=== PATIENT | male | born 1985 | race Two or more races ===

== ENCOUNTER 2019-07-06 15:30 | Emergency (ER) | payer OTHER ==
[~2019-07-06] VITALS: Ht 180.3 cm; Wt 90.0 kg
[2019-07-06] MEDS ORDERED: NAPR500T8 PO (16:00)
[2019-07-06] MEDS ORDERED: CEPH500T PO (16:00)
--- NOTE | 2019-07-06 16:00 | PHYS DOC ---
Past History Past Medical History: No Pertinent History Past Surgical History: Tonsillectomy, Other Additional Past Surgical Histo: adnoidectomy; lymph node removed from neck Alcohol Use: Occasionally General Adult EDM: Chief Complaint: ABSCESS HPI: HPI: Patient is a 34-year-old otherwise healthy male who presents with some swelling in his right elbow. He is unsure if he hit it on something but over the last several days is beginning to swell. It is a little painful when he rested on a table or accidentally bumps it. He has not noticed any redness but he says it has felt warm. [] Review of Systems: Review of Systems: Constitutional: Denies fever or chills Eyes: Denies change in visual acuity HENT: Denies nasal congestion or sore throat Respiratory: Denies cough or shortness of breath Cardiovascular: Denies chest pain or edema GI: Denies abdominal pain, nausea, vomiting, bloody stools or diarrhea : Denies dysuria Musculoskeletal: Per HPI Integument: Denies rash Neurologic: Denies headache, focal weakness or sensory changes Endocrine: Denies polyuria or polydipsia Lymphatic: Denies swollen glands Psychiatric: Denies depression or anxiety Heart Score: Risk Factors: Risk Factors: DM, Current or recent (<one month) smoker, HTN, HLP, family history of CAD, obesity. Risk Scores: Score 0 - 3: 2.5% MACE over next 6 weeks - Discharge Home Score 4 - 6: 20.3% MACE over next 6 weeks - Admit for Clinical Observation Score 7 - 10: 72.7% MACE over next 6 weeks - Early Invasive Strategies Allergies: Allergies: Allergies Coded Allergies Type Severity Reaction Last Updated Verified No Known Drug Allergies 07/06/19 No Physical Exam: PE: Constitutional: Well developed, well nourished, no acute distress, non-toxic appearance. [] HENT: Normocephalic, atraumatic, bilateral external ears normal, oropharynx moist, no oral exudates, nose normal. [] Eyes: PERRLA, EOMI, conjunctiva normal, no discharge. [] Neck: Normal range of motion, no tenderness, supple, no stridor. [] Cardiovascular:Heart rate regular rhythm, no murmur [] Lungs & Thorax: Bilateral breath sounds clear to auscultation [] Abdomen: Bowel sounds normal, soft, no tenderness, no masses, no pulsatile masses. [] Skin: Warm, dry, no erythema, no rash. [] Back: No tenderness, no CVA tenderness. [] Extremities: Very large right olecranon bursitis. [] Neurologic: Alert and oriented X 3, normal motor function, normal sensory function, no focal deficits noted. [] Psychologic: Affect normal, judgement normal, mood normal. [] EKG: EKG: [] Radiology/Procedures: Radiology/Procedures: [] Course & Med Decision Making: Course & Med Decision Making Pertinent Labs and Imaging studies reviewed. (See chart for details) [Procedure: Right olecranon bursa drainage The right olecranon area was prepped with Betadine and then using an 18-gauge needle and a 10 cc syringe 10 cc of serosanguineous fluid was extracted without difficulty a Band-Aid was placed and an Abdulaziz wrap was placed over the bandage to apply pressure.] Dragon Disclaimer: Dragon Disclaimer: This electronic medical record was generated, in whole or in part, using a voice recognition dictation system. Departure Departure: Impression: Primary Impression: Bursal cyst of olecranon Disposition: HOME/RESIDENCE PRIOR TO ADM Condition: STABLE Referrals: PCP,NO (PCP) Patient Instructions: Bursitis, Bursitis-SportsMed, Olecranon Bursitis Scripts Naproxen (NAPROXEN) 500 Mg Tablet. 1 TAB PO Q12HR PRN for PAIN, #60 TAB 1 Refill Prov: NAKUL PRESTON DO 07/06/19 Cephalexin (CEPHALEXIN) 500 Mg Tablet 1 TAB PO TID for bursitis, #30 TAB Prov: NAKUL PRESTON DO 07/06/19 NAKUL PRESTON DO July 06, 2019 16:00
[2019-07-06 16:17] VITALS: BP 122/67
== END 2019-07-06 16:07 | disposition home or self-care (01) ==
LOC: ER 15:30
DX: M71.321 Other bursal cyst, right elbow (principal)
CPT/HCPCS: 20605; 99283

== ENCOUNTER → 2019-07-23 | Outpatient (CLI) | payer OTHER ==
[2019-07-06 16:17] VITALS: BP 122/67
[~2019-07-23] MED LIST: CEPH500T PO; NAPR500T8 PO
--- NOTE | 2019-07-23 17:05 | RAD ---
PROCEDURE: ELBOW RIGHT 3V STUDY DATE: 07/23/2019 CLINICAL INDICATION / HISTORY: Right elbow pain. TECHNIQUE: Right Elbow 2 views COMPARISON: None FINDINGS: Two views of the right elbow demonstrate no evidence of fracture, subluxation, or dislocation. Soft tissues unremarkable. IMPRESSION: No acute osseous abnormality in the right elbow. PROCEDURE: KNEE RIGHT 2V STUDY DATE: 07/23/2019 CLINICAL INDICATION / HISTORY: Right knee pain. TECHNIQUE: [place] and lateral views of the right knee were obtained COMPARISON: Bilateral AP standing knee x-ray of the same day. FINDINGS: The osseous structures are intact. The articular surfaces are smooth. The joint space is maintained. No intra-articular loose bodies. The alignment is within normal limits. The soft tissues are unremarkable. No obvious joint effusion. No radio-opaque foreign bodies are identified. IMPRESSION: No fracture or dislocation is identified in the right knee.. PROCEDURE: KNEE STANDING BILAT AP STUDY DATE: 07/23/2019 CLINICAL INDICATION / HISTORY: Bilateral knee pain. TECHNIQUE: Standing AP view of both knees was obtained.. COMPARISON: None FINDINGS: The osseous structures are intact. The articular surfaces are smooth. The joint space is maintained. No intra-articular loose bodies. The alignment is within normal limits. The soft tissues are unremarkable. No obvious joint effusion. No radio-opaque foreign bodies are identified. IMPRESSION: Normal AP view of both knees. Electronically signed by: Kathia Amado MD (07/23/2019 5:02 PM) [id number]
== END | disposition home or self-care (01) ==
LOC: RAD 15:22
PROVIDERS: ATTEND Physician Assistant
DX: M25.562 Pain in left knee (principal); M25.561 Pain in right knee; M25.521 Pain in right elbow
CPT/HCPCS: 73080; 73560; 73565

== ENCOUNTER 2019-12-08 17:09 | Emergency (ER) | payer OTHER ==
[~2019-12-08] VITALS: Ht 180.3 cm; Wt 92.3 kg
[2019-12-08 17:09] VITALS: BP 132/72
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
== END 2019-12-08 18:04 | disposition home or self-care (01) ==
LOC: ER 17:09
DX: M54.2 Cervicalgia (principal); V89.2XXA Person injured in unspecified motor-vehicle accident, traffic, initial encounter; Y93.I9 Activity, other involving external motion; Y92.89 Other specified places as the place of occurrence of the external cause; Y99.8 Other external cause status
CPT/HCPCS: 99281

== ENCOUNTER 2019-12-30 06:02 | Emergency (ER) | payer OTHER ==
[~2019-12-30] VITALS: Ht 180.3 cm; Wt 92.5 kg
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
--- NOTE | 2019-12-30 07:53 | RAD ---
Study: CR HAND RIGHT 3V Indication: Punched a window. Comparison: None. Findings: No acute fracture. No traumatic malalignment. No retained radiopaque foreign body. Maintained joint spaces. Impression: No acute fracture or retained radiopaque foreign body. Electronically signed by: ALEXANDRIA EDGE MD (12/30/2019 7:50 AM) [id number]
[2019-12-30 08:15] VITALS: BP 124/70
== END 2019-12-30 08:15 | disposition home or self-care (01) ==
LOC: ER 06:02
DX: S61.011A Laceration without foreign body of right thumb without damage to nail, initial encounter (principal); S60.512A Abrasion of left hand, initial encounter; S60.511A Abrasion of right hand, initial encounter; W25.XXXA Contact with sharp glass, initial encounter; Y93.89 Activity, other specified; Y92.89 Other specified places as the place of occurrence of the external cause; Y99.8 Other external cause status
CPT/HCPCS: 73130; 99283

== ENCOUNTER → 2021-06-10 | Outpatient (CLI) | payer OTHER ==
--- NOTE | 2021-06-10 14:58 | RAD ---
XR FOOT_RIGHT 3 VIEWS History: Reason: CHRONIC PAIN / Spl. Instructions: / History: Technique: 3 views right foot Comparison: None. Findings: No dislocation. No acute fracture. Plantar calcaneal spur. Impression: 1. No acute osseous abnormality. Electronically signed by: Viral Valencia DO (06/10/2021 2:56 PM) [facility]
--- NOTE | 2021-06-10 15:00 | RAD ---
XR KNEE_AP BILAT STANDING, XR KNEE 1-2 VIEWS History: Reason: CHRONIC PAIN / Spl. Instructions: / History: Technique: 3 views bilateral knees including standing AP view. Comparison: None. Findings: Right knee: No dislocation. No acute fracture. Mild medial compartment joint space narrowing. Mild pa tellar spurring. Small knee joint effusion. Left knee: No dislocation. No acute fracture. Mild medial compartment joint space narrowing. Mild pat ellar spurring. Small knee joint effusion. Impression: 1. Mild bilateral knee DJD. 2. Small bilateral knee joint effusions. Electronically signed by: Viral Valencia DO (06/10/2021 2:58 PM) [facility]
--- NOTE | 2021-06-10 15:00 | RAD ---
XR KNEE_AP BILAT STANDING, XR KNEE 1-2 VIEWS History: Reason: CHRONIC PAIN / Spl. Instructions: / History: Technique: 3 views bilateral knees including standing AP view. Comparison: None. Findings: Right knee: No dislocation. No acute fracture. Mild medial compartment joint space narrowing. Mild pa tellar spurring. Small knee joint effusion. Left knee: No dislocation. No acute fracture. Mild medial compartment joint space narrowing. Mild pat ellar spurring. Small knee joint effusion. Impression: 1. Mild bilateral knee DJD. 2. Small bilateral knee joint effusions. Electronically signed by: Viral Valencia DO (06/10/2021 2:58 PM) [facility]
== END ==
LOC: RAD 14:10
PROVIDERS: ATTEND Physician Assistant
DX: M17.0 Bilateral primary osteoarthritis of knee (principal); M25.461 Effusion, right knee; M25.462 Effusion, left knee; M76.892 Other specified enthesopathies of left lower limb, excluding foot; M76.891 Other specified enthesopathies of right lower limb, excluding foot; M25.861 Other specified joint disorders, right knee; M25.862 Other specified joint disorders, left knee; M77.31 Calcaneal spur, right foot
CPT/HCPCS: 73565; 73630; 73560-50